=== PATIENT | male | born 1990 | race African-American/Black ===

== ENCOUNTER 2019-12-18 21:50 | Emergency (ER) | payer SELFPAY ==
[2019-12-18 22:02] VITALS: BP 141/79
--- NOTE | 2019-12-18 22:16 | ER Document Report ---
ED Medical Screen (RME) - General Chief Complaint: Abdominal Pain Stated Complaint: STOMACH ACHE Time Seen by Provider: 12/18/19 22:11 Mode of Arrival: Ambulatory Information source: Patient Notes: 29-year-old male presented to ED for complaint of abdominal pain for about a. He states a week ago he thought he might be constipated so he took some mag citrate for 2 days as well. He states that he started having some liquid stool so he quit taking it. He states he continues to have liquid stools but he also continues to have abdominal pain. He states the pain has not gotten any better at all. He states he does not smoke cigarettes he does drink about monthly and uses marijuana daily. He states he has no past medical or surgical history. Patient is alert, oriented respirations regular nonlabored speaking in full sentences. Will order blood urine and a abdomen x-ray and have him seen by another provider. I have greeted and performed a rapid initial assessment of this patient. A comprehensive ED assessment and evaluation of the patient, analysis of test results and completion of medical decision making process will be conducted by an additional ED providers. Physical Exam - Vital signs Vitals: Temp Pulse Resp BP Pulse Ox 98.0 F 71 16 141/79 H 98 12/18/19 21:59 12/18/19 21:59 12/18/19 21:59 12/18/19 21:59 12/18/19 21:59 Course - Vital Signs Vital signs: Temp Pulse Resp BP Pulse Ox 98.0 F 71 16 141/79 H 98 12/18/19 21:59 12/18/19 21:59 12/18/19 21:59 12/18/19 21:59 12/18/19 21:59
--- NOTE | 2019-12-18 23:12 | RADIOLOGY REPORT (SQ) ---
EXAM DESCRIPTION: XR ABDOMEN SUPINE AND ERECT WITH CHEST (ABD ACUTE SERIES) COMPLETED DATE/TME: 12/18/2019 22:18 CLINICAL HISTORY: Abdominal pain COMPARISON: None. FINDINGS: Single frontal view of the chest. Upright and supine views of the abdomen. Cardiomediastinal silhouette: Normal size and contour. Lungs: No consolidation, pneumothorax, or pleural effusion. Bones: No acute osseous abnormality. Bowel: No dilated loops of large or small bowel. Peritoneum: No free intraperitoneal air identified. Solid organs: No definite organomegaly. Calcifications: No abnormal calcifications. IMPRESSION: 1. No acute pulmonary process identified. 2. Nonobstructive bowel gas pattern.
[2019-12-18 23:18] LABS: ABSOLUTE EOSINOPHILS # (AUTO) 0.2 10^3/uL (0.0-0.6); ABSOLUTE LYMPHOCYTES (AUTO) 1.7 10^3/uL (0.5-4.7); ABSOLUTE MONOCYTES (AUTO) 0.5 10^3/uL (0.1-1.4); BASOPHILS % (AUTO) 0.3 % (0-2); EOSINOPHILS % (AUTO) 3.2 % (0-6); HEMOGLOBIN 14.4 g/dL (13.5-17.0); LYMPHOCYTES % (AUTO) 32.3 % (13-45); MEAN CORPUSCULAR HEMOGLOBIN 28.9 pg (27.0-33.4); MEAN CORPUSCULAR HGB CONC 34.2 g/dL (32.0-36.0); MEAN CORPUSCULAR VOLUME 85 fl (80-97); MONOCYTES % (AUTO) 8.4 % (3-13); PLATELET COUNT 294 10^3/uL (150-450); RED BLOOD COUNT 4.97 10^6/uL (4.35-5.55); SEGMENTED NEUTROPHILS % (AUTO) 55.8 % (42-78); TOTAL CELLS COUNTED % (AUTO) 100 %; WHITE BLOOD COUNT 5.4 10^3/uL (4.0-10.5)
[2019-12-18 23:23] LABS: APPEARANCE,URINE CLEAR; BILIRUBIN,URINE NEGATIVE (NEGATIVE); COLOR,URINE STRAW; GLUCOSE, URINE NEGATIVE (NEGATIVE); KETONES,URINE NEGATIVE (NEGATIVE); LEUKOCYTE ESTERASE,URINE NEGATIVE (NEGATIVE); NITRITE,URINE NEGATIVE (NEGATIVE); PROTEIN,URINE NEGATIVE (NEGATIVE); URINE SPECIFIC GRAVITY 1.006; UROBILINOGEN,URINE NEGATIVE mg/dL (<2.0)
[2019-12-18 23:37] LABS: URINE AMPHETAMINES SCREEN NEGATIVE; URINE BARBITURATES SCREEN NEGATIVE; URINE BENZODIAZEPINES SCREEN NEGATIVE; URINE COCAINE SCREEN NEGATIVE; URINE METHADONE SCREEN NEGATIVE; URINE PHENCYCLIDINE SCREEN NEGATIVE
[2019-12-18 23:40] LABS: ALBUMIN 4.7 g/dL (3.5-5.0); ALKALINE PHOSPHATASE 61 U/L (38-126); ANION GAP 10 (5-19); ASPARTATE AMINO TRANSFERASE 27 U/L (17-59); BILIRUBIN,DIRECT 0.1 mg/dL (0.0-0.4); BILIRUBIN,TOTAL 0.6 mg/dL (0.2-1.3); BLOOD UREA NITROGEN 8 mg/dL (7-20); CALCIUM 10.3 mg/dL (8.4-10.2); CARBON DIOXIDE 24 mmol/L (22-30); CHLORIDE 103 mmol/L (98-107); GLUCOSE 94 mg/dL (75-110); POTASSIUM 4.2 mmol/L (3.6-5.0); TOTAL PROTEIN 7.8 g/dL (6.3-8.2)
[2019-12-18 23:47] LABS: URINE MARIJUANA (THC) SCREEN UNCONFIRMED POSITIVE
== END 2019-12-19 01:50 | disposition left against medical advice (07) ==
LOC: ER 21:50
DX: R10.9 Unspecified abdominal pain (principal)
CPT/HCPCS: 36415; 74022; 80053; 80307; 81001; 83690; 85025; 99281; 99284

== ENCOUNTER 2019-12-20 21:34 | Emergency (ER) | payer SELFPAY ==
[2019-12-20] MEDS ORDERED: NORMAL SALINE 1000 ML 1,000 ML IV ONE (22:02)
[2019-12-20] MEDS ORDERED: MAG HYDROX/AL HYDROX/SIMETH SUSP 30 ML UDCUP PO ONE (22:03)
[2019-12-20] MEDS ORDERED: LIDOCAINE 2% VISCOUS SOLN 15 ML UDCUP PO ONE (22:03)
--- NOTE | 2019-12-20 22:04 | ER Document Report ---
ED GI/ - General Stated Complaint: MID ABDOMINAL PAIN Time Seen by Provider: 12/20/19 21:57 Primary Care Provider: [facility] [Provider Group] - Follow up as needed Mode of Arrival: Ambulatory Information source: Patient Notes: Patient presents complaining of abdominal pain for the past week to the upper abdomen. Patient states he thought he was constipated and drank magnesium c itrate 4 days ago. Patient reports liquid stool after the mag citrate. Patient denies any fever, nausea, vomiting or diarrhea since. Patient denies any urinary symptoms. - HPI Patient complains to provider of: Abdominal pain. No: Diarrhea, Vomiting Onset: Last week Timing/Duration: Persistent Quality of pain: Achy Pain Level: 3 Location: Epigastric Associated symptoms: denies: Diarrhea, Dysuria, Fever, Nausea, Urinary hesitancy, Urinary frequency, Urinary retention, Urinary urgency, Vomiting Exacerbated by: Denies Relieved by: Denies Similar symptoms previously: No Recently seen / treated by doctor: No - Related Data Allergies/Adverse Reactions: No Known Allergies Allergy (Unverified 12/18/19 22:37) Past Medical History - General Information source: Patient - Social History Smoking Status: Never Smoker Frequency of alcohol use: None Drug Abuse: Marijuana 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 denies: Fever EENT: No symptoms reported Cardiovascular: No symptoms reported. denies: Chest pain Respiratory: No symptoms reported. denies: Cough, Short of breath Gastrointestinal: Abdominal pain. denies: Diarrhea, Vomiting Genitourinary: No symptoms reported. denies: Dysuria, Flank pain Male Genitourinary: No symptoms reported Musculoskeletal: No symptoms reported. denies: Back pain Skin: No symptoms reported Hematologic/Lymphatic: No symptoms reported Neurological/Psychological: No symptoms reported Physical Exam - Vital signs Vitals: Temp Pulse Resp BP Pulse Ox 98.2 F 77 16 123/83 98 12/20/19 21:39 12/20/19 21:39 12/20/19 21:39 12/20/19 21:39 12/20/19 21:39 - Notes Notes: PHYSICAL EXAMINATION: GENERAL: Well-appearing and in no acute distress. HEAD: Atraumatic, normocephalic. EYES: sclera anicteric, conjunctiva are normal. ENT: nares patent. Moist mucous membranes. NECK: Normal range of motion, supple without lymphadenopathy LUNGS: CTAB and equal. No wheezes rales or rhonchi. HEART: Regular rate and rhythm without murmurs ABDOMEN: Soft, gastric tenderness, normal bowel sounds, no guarding. EXTREMITIES: Normal range of motion, no pitting edema. No cyanosis. BACK: No CVA tenderness NEUROLOGICAL: Cranial nerves grossly intact. Normal speech. Normal gait. PSYCH: Normal mood, normal affect. SKIN: Warm, Dry, normal turgor, no rashes or lesions noted Course - Re-evaluation Re-evalutation: 12/21/19 01:39 On repeat examination, abdomen soft, nontender. Patient does have mildly elevated lipase. No evidence for any biliary obstruction on imaging study. No concern for choledocholithiasis. Patient encouraged to avoid any alcohol use. Patient encouraged to follow-up with primary doctor for recheck. Discussed worsening symptoms of patient should return yearly for. Patient verbalized understanding and is agreeable with discharge plan of care. - Vital Signs Vital signs: Temp Pulse Resp BP Pulse Ox 97.9 F 67 16 107/72 97 12/21/19 00:55 12/21/19 00:55 12/21/19 00:55 12/21/19 00:55 12/21/19 00:55 - Laboratory Result Diagrams: 12/21/19 00:57 12/21/19 00:57 Laboratory results interpreted by me: 12/21/19 12/21/19 00:57 01:05 Lipase 394.2 H Urine Ketones TRACE H - Diagnostic Test Radiology reviewed: Reports reviewed Discharge - Discharge Clinical Impression: Epigastric pain Condition: Stable Disposition: HOME, SELF-CARE Instructions: Abdominal Pain ([facility]) Additional Instructions: Return immediately for any new or worsening symptoms Followup with your primary care provider, call tomorrow to make a followup appointment Prescriptions: Sucralfate [Carafate 1 gm Tablet] 1 gm PO ACHS #40 tablet Omeprazole Magnesium [Prilosec Otc] 20 mg PO DAILY #15 tablet. Referrals: [facility] [Provider Group] - Follow up as needed
--- NOTE | 2019-12-20 22:36 | RADIOLOGY REPORT (SQ) ---
History: abd pain Procedure: XR ABDOMEN 2 VIEWS SUPINE ERECT Technique: 2 views. Flat and upright views the abdomen were obtained. Findings: There is a normal bowel gas pattern. There is no evidence of pneumoperitoneum. No definite opaque urinary tract calculus is seen. No significant bony abnormality is seen. Impression: Examination is within normal limits as above. copyright 2010 [facility] [employer]- All Rights Reserved
--- NOTE | 2019-12-20 23:08 | RADIOLOGY REPORT (SQ) ---
EXAM DESCRIPTION: Abdominal ultrasound CLINICAL HISTORY: 29 years Male; upper abd pain TECHNIQUE: Abdominal ultrasound was performed. COMPARISON: None. FINDINGS: Pancreas: The neck and body the pancreas are unremarkable. The head and tail are not well seen. Liver: The liver measures 13.6 cm in length. Echogenicity is normal.. Portal vein is patent with hepatopedal flow Gallbladder: : Gallbladder wall is 1.2 mm. No stones. No sonographic San's. No pericholecystic fluid. Common bile duct: 2.2 mm. Right kidney: The kidney measures 10.7 x 5.8 x 4.0 cm. Echogenicity is normal. Blood flow is normal. No hydronephrosis. Aorta:Visualized portions are within normal limits. IVC: Visualized portions are within normal limits. Ascites: No free fluid. IMPRESSION: Unremarkable right upper quadrant ultrasound. No acute process.
[2019-12-21 00:56] VITALS: BP 107/72
[2019-12-21] MEDS ORDERED: LIDOCAINE 2% VISCOUS SOLN 15 ML UDCUP ONE (00:59)
[2019-12-21] MEDS ORDERED: MAG HYDROX/AL HYDROX/SIMETH SUSP 30 ML UDCUP ONE (00:59)
[2019-12-21 01:03] LABS: ABSOLUTE EOSINOPHILS # (AUTO) 0.2 10^3/uL (0.0-0.6); ABSOLUTE LYMPHOCYTES (AUTO) 1.6 10^3/uL (0.5-4.7); ABSOLUTE MONOCYTES (AUTO) 0.5 10^3/uL (0.1-1.4); ABSOLUTE NEUT (AUTO) 3.6 10^3/uL (1.7-8.2); BASOPHILS % (AUTO) 0.5 % (0-2); EOSINOPHILS % (AUTO) 3.2 % (0-6); HEMATOCRIT 40.8 % (37.9-51.0); HEMOGLOBIN 14.1 g/dL (13.5-17.0); LYMPHOCYTES % (AUTO) 27.3 % (13-45); MEAN CORPUSCULAR HEMOGLOBIN 29.3 pg (27.0-33.4); MEAN CORPUSCULAR HGB CONC 34.6 g/dL (32.0-36.0); MEAN CORPUSCULAR VOLUME 85 fl (80-97); MONOCYTES % (AUTO) 8.6 % (3-13); PLATELET COUNT 284 10^3/uL (150-450); RED BLOOD COUNT 4.82 10^6/uL (4.35-5.55); RED CELL DISTRIBUTION WIDTH 12.8 % (11.5-14.0); SEGMENTED NEUTROPHILS % (AUTO) 60.4 % (42-78); TOTAL CELLS COUNTED % (AUTO) 100 %
[2019-12-21 01:18] LABS: APPEARANCE,URINE CLEAR; BILIRUBIN,URINE NEGATIVE (NEGATIVE); COLOR,URINE YELLOW; GLUCOSE, URINE NEGATIVE (NEGATIVE); KETONES,URINE TRACE mg/dL (NEGATIVE); LEUKOCYTE ESTERASE,URINE NEGATIVE (NEGATIVE); NITRITE,URINE NEGATIVE (NEGATIVE); PROTEIN,URINE NEGATIVE (NEGATIVE); URINE SPECIFIC GRAVITY 1.019; UROBILINOGEN,URINE NEGATIVE mg/dL (<2.0)
[2019-12-21 01:21] LABS: ALBUMIN 4.7 g/dL (3.5-5.0); ALKALINE PHOSPHATASE 61 U/L (38-126); ANION GAP 8 (5-19); ASPARTATE AMINO TRANSFERASE 26 U/L (17-59); BILIRUBIN,DIRECT 0.1 mg/dL (0.0-0.4); BILIRUBIN,TOTAL 0.6 mg/dL (0.2-1.3); BLOOD UREA NITROGEN 9 mg/dL (7-20); CALCIUM 9.6 mg/dL (8.4-10.2); CARBON DIOXIDE 27 mmol/L (22-30); CHLORIDE 104 mmol/L (98-107); GLUCOSE 97 mg/dL (75-110); POTASSIUM 3.9 mmol/L (3.6-5.0); TOTAL PROTEIN 7.5 g/dL (6.3-8.2)
== END 2019-12-21 01:45 | disposition home or self-care (01) ==
LOC: ER 21:34
DX: R10.13 Epigastric pain (principal)
CPT/HCPCS: 99285; 36415; 83690; 85025; 80053; 81001; 74019; 76705; J3490